=== PATIENT | female | born 1945 | race Caucasian/White ===

== ENCOUNTER → 2018-08-16 | Outpatient (CLI) | payer MEDICARE ==
--- NOTE | 2018-08-16 13:51 | MM ---
Reason for exam: screening (asymptomatic). Last mammogram was performed 1 year ago. History: Benign US biopsy breast VAD LT of the left breast, July 13, 2013. Benign US biopsy breast VAD LT of the left breast, July 13, 2013. Physical Findings: A clinical breast exam by your physician is recommended on an annual basis and results should be correlated with mammographic findings. MG 3D Screening Mammo W/Cad Bilateral CC and MLO view(s) were taken. Prior study comparison: July 13, 2013, left breast MG diagnostic mammo LT wo CAD. The breast tissue is heterogeneously dense. This may lower the sensitivity of mammography. Finding #1: There is stable architectural distortion in the anterior position of the right breast at excisional biopsy site. Finding #2: There are typically benign round, regional, diffuse calcifications in both breasts. Left axillary pacemaker redemonstrated. Previous mammotome biopsy in the left breast x 2. There is no discrete abnormality. Two linear scar markers right breast redemonstrated. ASSESSMENT: Benign, BI-RAD 2 RECOMMENDATION: Routine screening mammogram of both breasts in 1 year.
== END | disposition home or self-care (01) ==
LOC: RADMAMWWP 11:06
PROVIDERS: ATTEND Family Medicine
DX: Z12.31 Encounter for screening mammogram for malignant neoplasm of breast (principal)
CPT/HCPCS: 77063; 77067

== ENCOUNTER → 2021-07-30 | Outpatient (CLI) | payer MEDICARE ==
--- NOTE | 2021-07-31 07:56 | MM ---
Reason for Exam: Screening (asymptomatic). Last mammogram was performed 2 year(s) and 11 month(s) ago. Patient History: Menarche at age 18. First Full-Term at age 20. Hysterectomy at age 40. Postmenopausal. 07/13/2013, Benign Core Biopsy on the left side. 07/13/2013, Benign Core Biopsy on the left side. Risk Values: Lidia 5 year model risk: 1.7%. NCI Lifetime model risk: 4.0%. Film Views: Bilateral CC views were taken. Bilateral MLO views were taken. Prior Study Comparison: 01/29/2016 Screening Mammogram, [facility]. 08/12/2017 Screening Mammogram, [facility]. 08/16/2018 Bilateral Screening Mammogram, [facility]. Tissue Density: The breast tissue is heterogeneously dense. This may lower the sensitivity of mammography. Findings: Analyzed By CAD. Asymmetric density right breast is stable relative to multiple prior exams. Benign-appearing. Previous biopsy: The left breast noted. Overall Assessment: Benign, BI-RAD 2 Management: Screening Mammogram of both breasts in 1 year. A clinical breast exam by your physician is recommended on an annual basis and results should be correlated with mammographic findings. Electronically signed and approved by: Oliver Acuna M.D. Radiologis
== END | disposition home or self-care (01) ==
LOC: RADMAMWWP 07:22
PROVIDERS: ATTEND Family Medicine
DX: Z12.31 Encounter for screening mammogram for malignant neoplasm of breast (principal); Z78.0 Asymptomatic menopausal state
CPT/HCPCS: 77063; 77067

== ENCOUNTER 2021-08-05 08:20 | Day surgery (SDC) | payer MEDICARE ==
[2021-08-01 16:26] VITALS: BMI 34.2
--- NOTE | 2021-08-05 07:46 | P.GSHP ---
History of Present Illness H&P Date: 08/05/21 CHIEF COMPLAINT: Colon screen HISTORY OF PRESENT ILLNESS: The patient is a 76-year-old female who presents for colon screen. Lower endoscopy was offered for further evaluation and management. PAST MEDICAL HISTORY: Please see list. PAST SURGICAL HISTORY: Please see list. MEDICATIONS: Please see list. ALLERGIES: Please see list. SOCIAL HISTORY: No illicit drug use FAMILY HISTORY: No reports of Crohn disease or ulcerative colitis. REVIEW OF ORGAN SYSTEMS: CONSTITUTIONAL: No reports of fevers or chills. PHYSICAL EXAM: VITAL SIGNS: Stable GENERAL: Well-developed pleasant in no acute distress. HEENT: No scleral icterus. Extraocular movements grossly intact. Moist buccal mucosa. NECK: Supple without lymphadenopathy. CHEST: Unlabored respirations. Equal bilateral excursions. CARDIOVASCULAR: Regular rate and rhythm. Distal 2+ pulses. ABDOMEN: Soft, nontender, nondistended. MUSCULOSKELETAL: No clubbing, cyanosis, or edema. ASSESSMENT: 1. Colon screen. PLAN: 1. Recommend proceeding with a lower endoscopy Past Medical History Past Medical History: Cancer, Hyperlipidemia, Hypertension Additional Past Medical History / Comment(s): hx of cervical cancer, hx colon polyps, pacemaker History of Any Multi-Drug Resistant Organisms: None Reported Past Surgical History: Hysterectomy, Pacemaker Additional Past Surgical History / Comment(s): partial hysterectomy, colonoscopy, breast bx Past Anesthesia/Blood Transfusion Reactions: Previous Problems w/ Anesthesia, Motion Sickness, Postoperative Nausea & Vomiting (PONV) Additional Past Anesthesia/Blood Transfusion Reaction / Comment(s): severe n & v. Type of Cardiac Device: Permanent Pacemaker Device Placement Date:: [employer] SuperTurbo 2013 Past Psychological History: Anxiety, Depression Smoking Status: Never smoker Past Alcohol Use History: None Reported Past Drug Use History: None Reported - Past Family History Mother Family Medical History: Cancer Additional Family Medical History / Comment(s): lymphoma Brother(s) Family Medical History: Cancer Additional Family Medical History / Comment(s): bladder cancer Sister(s) Family Medical History: Cancer Additional Family Medical History / Comment(s): female cancer Medications and Allergies Home Medications Medication Instructions Recorded Confirmed Type Aspirin EC [Ecotrin Low Dose] 81 mg PO DAILY 08/01/21 08/01/21 History Atorvastatin [Lipitor] 40 mg PO DAILY 08/01/21 08/01/21 History Cholecalciferol [Vitamin D3 (25 25 mcg PO DAILY 08/01/21 08/01/21 History Mcg = 1000 Iu)] Losartan [Cozaar] 25 mg PO DAILY 08/01/21 08/01/21 History Metoprolol Tartrate 25 mg PO DAILY@1300,2200 08/01/21 08/01/21 History Venlafaxine HCl ER [Effexor Xr] 37.5 mg PO DAILY 08/01/21 08/01/21 History Allergies Allergy/AdvReac Type Severity Reaction Status Date / Time No Known Allergies Allergy Verified 08/01/21 16:00
[~2021-08-05 08:20] MED LIST: LACTATED RINGERS 1,000 ML IV SCH; LIDOCAINE 1% (10MG/ML) FOR IV START INTRADERMA PRN
[2021-08-05 08:35] VITALS: RESP 18; TEMP 97.7
[2021-08-05] MEDS ORDERED: LACTATED RINGERS 1,000 ML IV ONE (08:35)
[2021-08-05] MEDS ORDERED: ONDANSETRON 4 MG/2 ML VIAL ONE (08:44)
[2021-08-05] MEDS ORDERED: PROPOFOL 10 MG/ML 20 ML VIAL IV ONE (09:00)
--- NOTE | 2021-08-05 09:14 | P.PCN ---
Date of Procedure: 08/05/21 Description of Procedure: PREOPERATIVE DIAGNOSIS: Colonoscopy screening. POSTOPERATIVE DIAGNOSIS: Colonoscopy screening. Diverticulosis, scattered. OPERATION: Colonoscopy to the cecum, ileocecal valve and appendiceal orifice. SURGEON: Debbie Sanchez MD. ANESTHESIA: MAC. INDICATIONS: The patient is a 76-year-old female who presents for colonoscopy screening. Last colonoscopy over 11 years. Benefits and risks were described and informed consent was obtained. DESCRIPTION OF PROCEDURE: The patient had undergone Sutab prep. The patient had been brought into the operating room and laid in the left lateral decubitus position. After adequate intravenous sedation, the rectum was examined with 2% lidocaine jelly. No external hemorrhoids were encountered. The rectal tone was within normal limits. No lesions were palpated in the rectal vault. An Olympus colonoscope was advanced until the cecum, ileocecal valve and appendiceal orifice were clearly viewed. The prep was excellent. Scattered diverticulosis was encountered. No colonic polyps were found. No evidence of focal colitis was found. Retroflexion of the scope demonstrated grade 1 internal hemorrhoids without active bleeding or inflammation. The colon was desufflated. The patient had tolerated the procedure well. Withdrawal time was over 6 minutes. FINDINGS: Aronchick preparation quality scale 1 (1-5) Internal hemorrhoids, grade 1 No external prolapsed hemorrhoids. No arteriovenous malformations. No adenomatous polyps. No focal colitis. Pandiverticulosis RECOMMENDATIONS: Lower endoscopy in 10 years, 2031 or Cologaurd Plan - Discharge Summary Discharge Rx Participant: No New Discharge Prescriptions: Continue Venlafaxine HCl ER [Effexor XR] 37.5 mg PO DAILY Cholecalciferol [Vitamin D3 (25 Mcg = 1000 Iu)] 25 mcg PO DAILY Metoprolol Tartrate 25 mg PO DAILY@1300,2200 Losartan [Cozaar] 25 mg PO DAILY Atorvastatin [Lipitor] 40 mg PO DAILY Aspirin EC [Ecotrin Low Dose] 81 mg PO DAILY Discharge Medication List Aspirin EC [Ecotrin Low Dose] 81 mg PO DAILY 08/01/21 [History] Atorvastatin [Lipitor] 40 mg PO DAILY 08/01/21 [History] Cholecalciferol [Vitamin D3 (25 Mcg = 1000 Iu)] 25 mcg PO DAILY 08/01/21 [Histor y] Losartan [Cozaar] 25 mg PO DAILY 08/01/21 [History] Metoprolol Tartrate 25 mg PO DAILY@1300,2200 08/01/21 [History] Venlafaxine HCl ER [Effexor XR] 37.5 mg PO DAILY 08/01/21 [History] Follow up Appointment(s)/Referral(s): Debbie Sanchez MD [STAFF PHYSICIAN] - As Needed Patient Instructions/Handouts: Diverticulosis Diet (GEN), Diverticulosis (DC) Activity/Diet/Wound Care/Special Instructions: Repeat colonoscopy in 2031 or cologaurd Discharge Disposition: HOME SELF-CARE
[2021-08-05 09:20] VITALS: PULSE 62
[2021-08-05 09:31] VITALS: BP 148/79
== END 2021-08-05 09:53 | disposition home or self-care (01) ==
LOC: ORWHC2ENDO 08:20
PROVIDERS: ATTEND Surgery Plastic and Reconstructive Surgery
DX: Z12.11 Encounter for screening for malignant neoplasm of colon (principal); K57.30 Diverticulosis of large intestine without perforation or abscess without bleeding; K64.0 First degree hemorrhoids; Z86.010 Personal history of colon polyps; E78.5 Hyperlipidemia, unspecified; I10 Essential (primary) hypertension; Z85.41 Personal history of malignant neoplasm of cervix uteri; Z90.710 Acquired absence of both cervix and uterus; Z95.0 Presence of cardiac pacemaker; Z98.890 Other specified postprocedural states; F41.9 Anxiety disorder, unspecified; F32.A Depression, unspecified; Z80.7 Family history of other malignant neoplasms of lymphoid, hematopoietic and related tissues; Z80.52 Family history of malignant neoplasm of bladder; Z80.9 Family history of malignant neoplasm, unspecified; Z79.82 Long term (current) use of aspirin; Z79.899 Other long term (current) drug therapy
CPT/HCPCS: J2405; J2704; G0105

== ENCOUNTER → 2021-08-21 | Outpatient (CLI) | payer MEDICARE ==
--- NOTE | 2021-08-26 12:25 | CA ---
Transthoracic Echo Report Name: Charissa Mendoza Age: 76 Gender: F : 1945 Exam Date: 08/21/2021 14:40 Exam Location: [place] [facility] Ht (in): 60 Wt (lb): 174 Ordering Physician: David Joaquin MD ([id number]) Attending/Referring Phys: Cooking Chef Catherine Resendiz RDCS Procedure CPT: Indications: I10 HYPERTENSION Cardiac Hx: Pacemaker Technical Quality: Fair Contrast 1: Total Dose (mL): Contrast 2: Total Dose (mL): MEASUREMENTS (Male / Female) Normal Values 2D ECHO LV Diastolic Diameter PLAX 4.1 cm 4.2 - 5.9 / 3.9 - 5.3 cm LV Systolic Diameter PLAX 3.2 cm IVS Diastolic Thickness 1.2 cm 0.6 - 1.0 / 0.6 - 0.9 cm LVPW Diastolic Thickness 1.1 cm 0.6 - 1.0 / 0.6 - 0.9 cm LV Relative Wall Thickness 0.6 RV Internal Dim ED PLAX 2.6 cm LA Systolic Diameter LX 3.2 cm 3.0 - 4.0 / 2.7 - 3.8 cm LA Volume 46.5 cm??? 18 - 58 / 22 - 52 cm??? M-MODE Aortic Root Diameter MM 3.1 cm MV E Point Septal Separation 1.0 cm AV Cusp Separation MM 2.1 cm DOPPLER AV Peak Velocity 114.6 cm/s AV Peak Gradient 5.3 mmHg MV Area PHT 2.3 cm??? Mitral E Point Velocity 63.2 cm/s Mitral A Point Velocity 71.3 cm/s Mitral E to A Ratio 0.9 MV Deceleration Time 336.2 ms MV E' Velocity 3.4 cm/s Mitral E to MV E' Ratio 18.3 TR Peak Velocity 280.8 cm/s TR Peak Gradient 31.5 mmHg Right Ventricular Systolic Press 36.1 mmHg FINDINGS Left Ventricle Left ventricular ejection fraction is estimated at 50-55%. Left ventricular cavity size normal. Borderline left ventricular hypertrophy. Right Ventricle Normal right ventricular size. Mild pulmonary hypertension. Right Atrium Normal right atrial size. Left Atrium Normal left atrial size. No evidence for an atrial septal defect. Mitral Valve Mitral annular calcification. Aortic Valve Trileaflet aortic valve. Focal thickening of the aortic valve cusps. Tricuspid Valve Mild tricuspid regurgitation. Pulmonic Valve Structurally normal pulmonic valve. Pericardium Normal pericardium. No pericardial effusion. Aorta Normal size aortic root and proximal ascending aorta. CONCLUSIONS Normal LV systolic function Mild pulmonary hypertension Mild tricuspid regurgitation Previewed by: Dr. Han Dee MD (Electronically Signed) Final Date: 26 August 2021 12:24
== END | disposition home or self-care (01) ==
LOC: RADECHMAIN 14:29
PROVIDERS: ATTEND Internal Medicine Interventional Cardiology
DX: I07.1 Rheumatic tricuspid insufficiency (principal); I27.20 Pulmonary hypertension, unspecified
CPT/HCPCS: 93306

== ENCOUNTER 2022-01-15 07:27 | Day surgery (SDC) | payer MEDICARE ==
[~2022-01-15 07:27] MED LIST changes: -LACTATED RINGERS 1,000 ML IV SCH; -LIDOCAINE 1% (10MG/ML) FOR IV START INTRADERMA PRN; +SODIUM CHLORIDE 0.9% 1,000 ML IV SCH; +ceFAZolin 1 GM in SODIUM CHLORIDE 0.9% IRRIG BTL 250 ML IRRIGATION PRN
[2022-01-15 08:01] VITALS: RESP 18; TEMP 98.1
[2022-01-15 08:26] LABS: Basophils # (A) 0.1 k/uL (0-0.2); Basophils % (A) 1 %; Calcium 8.7 mg/dL (8.4-10.2); Eosinophils # (A) 0.4 k/uL (0-0.7); Eosinophils % (A) 6 %; HCT 41.3 % (34.0-46.0); HGB 13.6 gm/dL (11.4-16.0); Lymphocytes # (A) 2.1 k/uL (1.0-4.8); Lymphocytes % (A) 36 %; MCHC 32.9 g/dL (31.0-37.0); MCV 88.2 fL (80.0-100.0); Mean Platelet Volume 9.1; Monocytes # (A) 0.5 k/uL (0-1.0); Monocytes % (A) 8 %; Neutrophils # (A) 2.7 k/uL (1.3-7.7); Neutrophils % (A) 47 %; Platelet Count 188 k/uL (150-450); RBC 4.68 m/uL (3.80-5.40); RDW 13.1 % (11.5-15.5); WBC 5.7 k/uL (3.8-10.6)
[2022-01-15] MEDS ORDERED: HEPARIN SODIUM 1,000 UN/ML (10ML VL) ONE (08:30)
[2022-01-15] MEDS ORDERED: MIDAZOLAM 2 MG/2 ML VIAL IV ONE (09:48)
[2022-01-15] MEDS ORDERED: NITROGLYCERIN SL TABS 0.4 MG TAB SUBLINGUAL ONE ×2 (09:49→09:50)
[2022-01-15] MEDS ORDERED: LIDOCAINE 1% INJ 10MG/ML (30 ML VIAL-PF) SQ ONE ×2 (09:50→09:55)
[2022-01-15] MEDS ORDERED: SODIUM CHLORIDE 0.9% 50 ML with ceFAZolin 2,000 MG IV ONE ×2 (09:55)
[2022-01-15] MEDS ORDERED: ACETAMINOPHEN TAB 325 MG TAB ONE (12:17)
[2022-01-15] MEDS ORDERED: ACETAMINOPHEN TAB 325 MG TAB PO STA (12:18)
[2022-01-15 12:40] VITALS: BP 146/83; PULSE 60
--- NOTE | 2022-01-15 15:07 | CE ---
CARDIAC ELECTROPHYSIOLOGY REPORT PROCEDURES PERFORMED: 1. Explantation of previously-placed existing pulse generator. 2. Implantation of a new pulse generator, dual-chamber device. PERFORMED BY: Dr. Lizbet Joaquin. Moderate conscious sedation time was 41 minutes. The patient was administered Versed. Oxygen saturation, hemodynamics, and EKG were monitored closely. CLINICAL INFORMATION: Ms. Charissa Mendoza is a 76-year-old lady with history of hypertension, hyperlipidemia, and sick sinus syndrome with a dual-chamber pacemaker that was placed in 2013, in [facility]. She has been seeing me for the last few years. Device has been gradually reaching AUBREY. After the device reached AUBREY about a month ago, she was advised a device change. Her ventricular lead always had a high threshold of nearly 2.0 to 2.5. She was pacing 75% in the atrium, but almost never in the ventricle. I advised the patient and her , and we had a long discussion. I suggested that I will not change the lead, but I will just change the pulse generator, but I will recheck the leads prior to placing the new pulse generator. Risks, benefits, options, and rationale were explained. PROCEDURE NOTE: Under strict aseptic precautions and local anesthesia, a linear incision was made over the existing pulse generator. Blunt dissection was carried, and the old pacemaker generator was explanted. The leads were checked individually. After that, the pocket was irrigated. During the incision, the patient also received intravenous antibiotic. The pocket was irrigated with antibiotic solution. The leads were connected to the new pulse generator, and the new pulse generator was secured to the underlying capsule. The pacemaker pocket was closed in 2 layers with 2-0 and 3-0 Vicryl. Excellent hemostasis was secured. The patient tolerated the procedure well. DEVICE INFORMATION: Explanted pacemaker was manufactured by [employer]. Product model was K063. Product name was [employer]. Serial #[id number]. The atrial lead was kept as a same lead used, model #4479, serial #[id number]. Territory Business Manager is [employer]VER[employer]. The ventricular lead model #4136, serial #[id number]. Guidant basketball referee. The new pacemaker that was placed is manufactured by [employer] Model number is W1DR01, serial #[id number]. The atrial lead was checked. The P waves were 3.3 mV. Pacing impedance was 380 ohms. The pacing threshold was 0.75 V at 0.4 milliseconds. The right ventricular lead was also checked. R waves were 2.5 mV. Pacing impedance was 1007. The ventricular threshold was 2.5 V at 1 millisecond. The pacemaker was set up at a backup rate of 50, low rate of 50, high rate of 120, paced AV interval of 180 milliseconds, sensed AV interval of 150 milliseconds. The patient tolerated the procedure well without complications. Details were discussed with the patient as well as her . She will be discharged later on today and will be seen in the office in about a week for a device check as well as to do a site check. The patient will be discharged later on today in the next couple of hours. MMODL / IJN: [id number] /
== END 2022-01-15 12:42 | disposition home or self-care (01) ==
LOC: CATHEP 07:27
PROVIDERS: ATTEND Internal Medicine Interventional Cardiology
DX: T82.111A Breakdown (mechanical) of cardiac pulse generator (battery), initial encounter (principal); I49.5 Sick sinus syndrome; I10 Essential (primary) hypertension; E78.5 Hyperlipidemia, unspecified; Z95.0 Presence of cardiac pacemaker
CPT/HCPCS: 33228; 80048; 85025; C1785; J2250; J0690; J2001

== ENCOUNTER → 2022-01-30 | Outpatient (CLI) | payer MEDICARE ==
--- NOTE | 2022-01-30 15:11 | CT ---
EXAMINATION TYPE: CT urogram wo/w con DATE OF EXAM: 01/30/2022 COMPARISON: none HISTORY: gross hematuria CT DLP: 3702 mGycm CONTRAST: Performed and without and with IV Contrast, patient injected with 70 mL of Isovue 300. CT Urography was performed with unenhanced followed by enhanced images of the kidneys, ureters and ur inary bladder. Delayed images were obtained. 3d reconstruction was performed at a separate work sta tion. FINDINGS: KIDNEYS/BLADDER: No hydronephrosis. No nephrolithiasis. No distinct renal mass. Urinary bladder gr ossly unremarkable. LUNG BASES-: No visible nodule. No infiltrate. LIVER/GB: No calcified gallstones. No space occupying hepatic lesion. Biliary tree is of normal ca liber. PANCREAS: No inflammation. No distinct mass. SPLEEN: No splenic enlargement. No lesion seen. ADRENALS: No nodule. No thickening. BOWEL: Normal appendix. Normal bowel caliber. No inflammation. GENITAL ORGANS: No gross abnormality. LYMPH NODES: No greater than 1cm abdominal or pelvic lymph nodes are appreciated. AORTA: No significant abnormality. OSSEOUS STRUCTURES: No significant abnormality is seen. OTHER: No significant additional abnormality is seen. IMPRESSION: 1. No distinct abnormality to account for the patient's symptoms of gross hematuria.
== END | disposition home or self-care (01) ==
LOC: RADCTMAIN 13:21
PROVIDERS: ATTEND Urology
DX: R31.0 Gross hematuria (principal)
CPT/HCPCS: 82565; 84520; 74178; 36415; 74400; Q9967

== ENCOUNTER → 2022-08-04 | Outpatient (CLI) | payer MEDICARE ==
--- NOTE | 2022-08-05 20:05 | MM ---
Reason for Exam: Screening (asymptomatic). Last mammogram was performed 1 year(s) and 1 month(s) ago. Patient History: Menarche at age 18. First Full-Term at age 20. Hysterectomy at age 40. Postmenopausal. MG pre op needle loc RT on the Right side. MG pre op needle loc RT on the Right side. 07/13/2013, Benign Core Biopsy on the left side. 07/13/2013, Benign Core Biopsy on the left side. Risk Values: Lidia 5 year model risk: 1.7%. NCI Lifetime model risk: 3.8%. Prior Study Comparison: 01/29/2016 Screening Mammogram, [facility]. 08/12/2017 Screening Mammogram, [facility]. 08/16/2018 Bilateral Screening Mammogram, [facility]. 07/30/2021 Bilateral MG 3D screening mammo w/cad, [facility]. Tissue Density: There are scattered fibroglandular densities. Findings: Analyzed By CAD. Unchanged global asymmetry on the right. Benign bilateral cysts and secretory calcifications are redemonstrated. 2 microclips within the left breast from prior biopsies. No significant change from prior exams. Generator device projecting over the left pectoralis muscle. Overall Assessment: Benign, BI-RAD 2 Management: Screening Mammogram of both breasts in 1 year. . Patient should continue monthly self-breast exams. A clinical breast exam by your physician is recommended on an annual basis. This exam should not preclude additional follow-up of suspicious palpable abnormalities. Note on Lidia scores and lifetime risk: 1. A Lidia score greater than 3% is considered moderate risk. If this is the case, consider specialist referral to assess eligibility for a risk reducing agent. 2. If overall lifetime risk for the development of breast cancer is 20% or higher, the patient may qualify for future screening with alternating mammogram and breast MRI. Electronically signed and approved by: Patience Harden M.D. Radiologist
== END | disposition home or self-care (01) ==
LOC: RADMAMWWP 09:59
PROVIDERS: ATTEND Family Medicine
DX: Z12.31 Encounter for screening mammogram for malignant neoplasm of breast (principal); Z78.0 Asymptomatic menopausal state
CPT/HCPCS: 77063; 77067

== ENCOUNTER → 2023-08-07 | Outpatient (CLI) | payer MEDICARE ==
--- NOTE | 2023-08-07 18:56 | MM ---
Reason for Exam: Screening (asymptomatic). Last screening mammogram was performed 12 month(s) ago. Patient History: Menarche at age 18. First Full-Term at age 20. Hysterectomy at age 40. Postmenopausal. MG pre op needle loc RT on the Right side. MG pre op needle loc RT on the Right side. 07/13/2013, Benign Core Biopsy on the left side. 07/13/2013, Benign Core Biopsy on the left side. Risk Values: Lidia 5 year model risk: 1.7%. NCI Lifetime model risk: 3.5%. Prior Study Comparison: 08/16/2018 Bilateral Screening Mammogram, [facility]. 07/30/2021 Bilateral MG 3D screening mammo w/cad, [facility]. 08/04/2022 Bilateral MG 3D screening mammo w/cad, [facility]. Tissue Density: There are scattered areas of fibroglandular density. Findings: Analyzed By CAD. Unchanged global asymmetry right upper outer quadrant. Generator device projecting over the left pectoralis. There is no suspicious group of microcalcifications or new suspicious mass in either breast. Overall Assessment: Benign, BI-RAD 2 Management: Screening Mammogram of both breasts in 1 year. . Patient should continue monthly self-breast exams. A clinical breast exam by your physician is recommended on an annual basis. This exam should not preclude additional follow-up of suspicious palpable abnormalities. Note on Lidia scores and lifetime risk: 1. A Lidia score greater than 3% is considered moderate risk. If this is the case, consider specialist referral to assess eligibility for a risk reducing agent. 2. If overall lifetime risk for the development of breast cancer is 20% or higher, the patient may qualify for future screening with alternating mammogram and breast MRI. Electronically signed and approved by: Patience Harden M.D. Radiologist
== END | disposition home or self-care (01) ==
LOC: RADMAMWWP 08:55
PROVIDERS: ATTEND Family Medicine
DX: Z12.31 Encounter for screening mammogram for malignant neoplasm of breast (principal); Z78.0 Asymptomatic menopausal state
CPT/HCPCS: 77063; 77067

== ENCOUNTER → 2023-08-07 | Outpatient (CLI) | payer MEDICARE ==
--- NOTE | 2023-08-07 21:18 | EEG ---
ELECTROENCEPHALOGRAM REPORT CLINICAL HISTORY: This is a 78-year-old woman with reported episode of confusion, repeating questions and smacking lips and staring off. The video EEG is obtained to evaluate for seizure epileptiform activity. RELEVANT MEDICATION: Xanax, that is reported on the surface water technician report. EEG TYPE: A routine 21-channel EEG with video using the 10/20 electrode placement system. DESCRIPTION: Wakefulness and brief drowsiness are obtained. During awake state, the posterior- dominant rhythm consists of [id number] voltage of 9 to 9.5 hertz activity that is well modulated, well sustained. There is no physiological stage 2 sleep architecture. There is no focal slowing. Interictal and ictal is none. ACTIVATION PROCEDURE: Photic stimulation did not evoke a posterior driving response. There is no abnormality during the photic stimulation. Hyperventilation is not performed. CLINICAL INTERPRETATION: This is a normal routine EEG. There is no focal slowing, epileptiform discharges, or seizure on the EEG. A normal routine EEG does not rule out underlying epilepsy. If concern for seizure, consider a sleep-deprived EEG versus a prolonged EEG. Clinical correlation is recommended. MMODL / IJN: [id number] /
== END ==
LOC: NEUROMAIN 07:29
PROVIDERS: ATTEND Psychiatry & Neurology Neurology
DX: H51.8 Other specified disorders of binocular movement (principal); R41.0 Disorientation, unspecified
CPT/HCPCS: 95816

== ENCOUNTER → 2024-08-10 | Outpatient (CLI) | payer MEDICARE ==
--- NOTE | 2024-08-10 09:39 | MM ---
Reason for Exam: Screening (asymptomatic). Last screening mammogram was performed 12 month(s) ago. Patient History: Menarche at age 18. First Full-Term at age 20. Hysterectomy at age 40. Postmenopausal. MG pre op needle loc RT on the Right side. MG pre op needle loc RT on the Right side. 07/13/2013, Benign Core Biopsy on the left side. 07/13/2013, Benign Core Biopsy on the left side. Risk Values: Lidia 5 year model risk: 1.7%. NCI Lifetime model risk: 3.3%. Prior Study Comparison: 07/30/2021 Bilateral MG 3D screening mammo w/cad, [facility]. 08/04/2022 Bilateral MG 3D screening mammo w/cad, [facility]. 08/07/2023 Bilateral MG 3D screening mammo w/cad, [facility]. Tissue Density: There are scattered areas of fibroglandular density. Findings: Analyzed By CAD. Benign-appearing round vascular calcification bilaterally are redemonstrated. Several biopsy clips in the left breast are obtained. Left axillary pacemaker device is partially imaged.Benign-appearing round vascular calcification bilaterally are redemonstrated. Several biopsy clips in the left breast are obtained. Left axillary pacemaker device is partially imaged. No suspicious new mass or distortion in either breast. Overall Assessment: Benign, BI-RAD 2 Management: Screening Mammogram of both breasts in 1 year. . Patient should continue monthly self-breast exams. A clinical breast exam by your physician is recommended on an annual basis. This exam should not preclude additional follow-up of suspicious palpable abnormalities. Note on Lidia scores and lifetime risk: 1. A Lidia score greater than 3% is considered moderate risk. If this is the case, consider specialist referral to assess eligibility for a risk reducing agent. 2. If overall lifetime risk for the development of breast cancer is 20% or higher, the patient may qualify for future screening with alternating mammogram and breast MRI. [facility], , 08/10/2024 9:36 AM. Electronically signed and approved by: Iraj Sanches M.D.
== END | disposition home or self-care (01) ==
LOC: RADMAMWWP 09:08
PROVIDERS: ATTEND Family Medicine
DX: Z12.31 Encounter for screening mammogram for malignant neoplasm of breast (principal); R92.323 Mammographic fibroglandular density, bilateral breasts; Z78.0 Asymptomatic menopausal state
CPT/HCPCS: 77063; 77067